=== PATIENT | male | born 1985 | race Caucasian/White ===

== ENCOUNTER 2021-12-26 08:58 | Outpatient (CLI) | payer MEDICARE, MEDICAID, SELFPAY | END 2021-12-26 08:59 | disposition home or self-care (01) | PROVIDERS: PCP Family Medicine; Visit Provider Nurse Practitioner Family | DX: I70.245 Atherosclerosis of native arteries of left leg with ulceration of other part of foot (principal); L97.522 Non-pressure chronic ulcer of other part of left foot with fat layer exposed; I70.235 Atherosclerosis of native arteries of right leg with ulceration of other part of foot; L97.515 Non-pressure chronic ulcer of other part of right foot with muscle involvement without evidence of necrosis | CPT/HCPCS: 99203 ==

== ENCOUNTER 2022-01-03 14:24 | Outpatient (CLI) | payer MEDICARE, MEDICAID, SELFPAY ==
--- NOTE | 2022-01-03 14:43 | CRLHL7_ITS ---
For Patients: As a result of the Cures Act, medical imaging exams and procedure reports are released immediately into your electronic medical record. You may view this report before your referring provider. If you have questions, please contact your health care provider. Indication: Nonhealing wound Technique: Left foot 3 views Comparison: None Findings: Gracile bones with osteopenia. No acute fracture. Rocker bottom foot. Soft tissue infection without osteomyelitis. Impression: No evidence of osteomyelitis or acute fracture. Dictated by Jaskaran Mejia MD @ 01/04/2022 9:09:18 AM (Electronically Signed)
--- NOTE | 2022-01-03 14:43 | CRLHL7_ITS ---
For Patients: As a result of the Cures Act, medical imaging exams and procedure reports are released immediately into your electronic medical record. You may view this report before your referring provider. If you have questions, please contact your health care provider. Indication: Nonhealing wound Technique: Three views right foot Comparison: None Findings: Osteopenia. Bones are gracile. No fracture. Soft tissue deformity of the 2nd toe. No cortical destruction or periostitis. Rocker bottom foot is present. Impression: No evidence of osteomyelitis. Dictated by Jaskaran Mejia MD @ 01/04/2022 9:07:13 AM (Electronically Signed)
== END 2022-01-03 14:25 | disposition home or self-care (01) ==
PROVIDERS: PCP Family Medicine; Visit Provider Nurse Practitioner Family
DX: S91.302A Unspecified open wound, left foot, initial encounter (principal); M85.872 Other specified disorders of bone density and structure, left ankle and foot; M85.871 Other specified disorders of bone density and structure, right ankle and foot; S91.301A Unspecified open wound, right foot, initial encounter
CPT/HCPCS: 73630; 99215

== ENCOUNTER 2022-01-04 15:13 | Outpatient (CLI) | payer MEDICARE, MEDICAID, SELFPAY ==
--- NOTE | 2022-01-04 15:00 | CRLHL7_ITS ---
For Patients: As a result of the Cures Act, medical imaging exams and procedure reports are released immediately into your electronic medical record. You may view this report before your referring provider. If you have questions, please contact your health care provider. DUPLEX ARTERIAL ULTRASOUND BILATERAL LOWER EXTREMITY CLINICAL HISTORY: Nonhealing lower extremity wound. COMPARISON: None. TECHNIQUE: The right lower extremity arteries were examined per exam specific protocol with claros-scale ultrasound, color-flow and Doppler spectral analysis. Peak systolic velocities (PSV), Doppler waveform quality and velocity ratios, if applicable, were documented at sites per exam specific protocol. FINDINGS: RIGHT PSV Waveform LEFT PSV WAVEFORM MACHINE CLOTH TRIMMER 133.5 Triphasic MACHINE CLOTH TRIMMER 173.5 Triphasic DFA 97.3 Multiphasic DFA 95.7 Multiphasic FA Prx 111.4 Biphasic FA Prx 130.7 Biphasic FA Mid 119.4 Biphasic FA Mid 121.4 Triphasic FA Dist 107.3 Biphasic FA Dist 110.9 Biphasic POP A 53.0 Biphasic POP A 85.2 Triphasic JEWEL A 61.8 Biphasic JEWEL A 46.5 Biphasic SOFT SUGAR CUTTER 111.9 Biphasic SOFT SUGAR CUTTER 54.3 Biphasic SWATHI 36.9 Biphasic SWATHI 70.6 Triphasic DPA 56.1 Multiphasic DPA 53.2 Triphasic Multiphasic waveforms are seen throughout both lower extremity arterial systems. No evidence of hemodynamically significant stenosis or occlusions. IMPRESSION: Multiphasic waveforms throughout both lower extremity arterial systems. No evidence of hemodynamically significant stenosis or occlusions. Reg Combs M.D. [email or web address] DARRELL/ping / DW/Dictated by: Reg Combs MD @ 01/06/2022 11:08:00 AM (Electronically Signed)
== END 2022-01-04 15:14 | disposition home or self-care (01) ==
LOC: US 15:13
PROVIDERS: PCP Family Medicine; Visit Provider Nurse Practitioner Family
DX: L97.519 Non-pressure chronic ulcer of other part of right foot with unspecified severity (principal); L97.529 Non-pressure chronic ulcer of other part of left foot with unspecified severity
CPT/HCPCS: 93926

== ENCOUNTER 2022-01-10 15:36 | Outpatient (CLI) | payer MEDICARE, MEDICAID, SELFPAY | END 2022-01-10 15:37 | disposition home or self-care (01) | LOC: WOUND 15:36 | PROVIDERS: PCP Family Medicine; Visit Provider Nurse Practitioner Family | DX: I70.245 Atherosclerosis of native arteries of left leg with ulceration of other part of foot (principal); I70.235 Atherosclerosis of native arteries of right leg with ulceration of other part of foot; L97.515 Non-pressure chronic ulcer of other part of right foot with muscle involvement without evidence of necrosis; L97.522 Non-pressure chronic ulcer of other part of left foot with fat layer exposed | CPT/HCPCS: 11042; 11043 ==

== ENCOUNTER 2022-01-23 10:39 | Outpatient (CLI) | payer MEDICARE, MEDICAID, SELFPAY | END 2022-01-23 10:40 | disposition home or self-care (01) | LOC: WOUND 10:40 | PROVIDERS: PCP Family Medicine; Visit Provider Nurse Practitioner Family | DX: I70.245 Atherosclerosis of native arteries of left leg with ulceration of other part of foot (principal); I70.235 Atherosclerosis of native arteries of right leg with ulceration of other part of foot; L97.515 Non-pressure chronic ulcer of other part of right foot with muscle involvement without evidence of necrosis; L97.522 Non-pressure chronic ulcer of other part of left foot with fat layer exposed | CPT/HCPCS: 87186; 87205; 99213 ==